=== PATIENT | female | born 1955 | race Caucasian/White ===

== ENCOUNTER → 2023-12-02 17:36 | Outpatient (REF) | payer OTHER, SELFPAY | LOC: MRI 3T 17:36 | PROVIDERS: ATTENDING PHYSICIAN Physical Medicine & Rehabilitation; FAMILY PHYSICIAN Family Medicine | DX: M54.16 Radiculopathy, lumbar region (principal); Z85.43 Personal history of malignant neoplasm of ovary | CPT/HCPCS: 72148 ==